=== PATIENT | male | born 2000 | race Caucasian/White ===

== ENCOUNTER 2019-08-28 15:11 | Emergency (ER) | payer BC ==
[2019-08-28 15:21] VITALS: BP 131/80; PULSE 80; RESP 16; TEMP 97.8
[2019-08-28] MEDS ORDERED: LIDOCAINE 1% INJ 10MG/ML (20 ML MDV) SQ ONE (15:27)
--- NOTE | 2019-08-28 15:55 | ED ---
Wound/Laceration HPI - General Chief Complaint: Wound/Laceration Stated Complaint: thumb lac Time Seen by Provider: 08/28/19 15:22 Source: patient Mode of arrival: ambulatory Limitations: no limitations - History of Present Illness Initial Comments: 19-year-old male presenting today for chief complaint of left thumb laceration. Patient states that he was moving sheet metal when it sliced his thumb. He states this all limitations in range of motion or strength he did not even want to come to the emergency department however his family member thought that he may need sutures. Patient states his tetanus has been updated within the last 10 years. Patient denies history of diabetes or immunocompromise. Patient has no other complaints except as a large piece he denies suspecting any risk of foreign body. remaining ROS (-) upon arrival patient appears well no distress, denies any other area of injury.. - Related Data Home Medications Medication Instructions Recorded Confirmed No Known Home Medications 10/26/15 10/26/15 Allergies Allergy/AdvReac Type Severity Reaction Status Date / Time No Known Allergies Allergy Verified 08/28/19 15:21 Review of Systems ROS Statement: Those systems with pertinent positive or pertinent negative responses have been documented in the HPI. ROS Other: All systems not noted in ROS Statement are negative. Past Medical History Past Medical History: No Reported History History of Any Multi-Drug Resistant Organisms: None Reported Past Surgical History: Ear Surgery Past Psychological History: No Psychological Hx Reported Smoking Status: Never smoker Past Alcohol Use History: None Reported Past Drug Use History: None Reported General Exam - General Exam Comments Initial Comments: General: The patient is awake and alert, in no distress, and does not appear acutely ill. Eye: Pupils are equal, round and reactive to light, extra-ocular movements are intact. No nystagmus. There is normal conjunctiva bilaterally. No signs of icterus. Ears, nose, mouth and throat: There are moist mucous membranes and no oral lesions. Musculoskeletal: Normal range of motion without tenderness at the IP and MCP joint of the left hand will decrease in strength. Capillary refill less than 3 seconds. Sensation intact proximal distal to injury site there is a 2 cm laceration on the thenar administered just distal to the MCP joint linear. Radial pulses equal bilaterally 2+. No evidence of foreign body bleeding controlled. Neurological: A&O x 3. CN II-XII intact, There are no obvious motor or sensory deficits. Coordination appears grossly intact. Speech is normal. Skin: Skin is warm and dry and no rashes or lesions are noted. Psychiatric: Cooperative, appropriate mood & affect, normal judgment. Limitations: no limitations Course Vital Signs 08/28/19 15:18 Temperature 97.8 F Pulse Rate 80 Respiratory 16 Rate Blood Pressure 131/80 O2 Sat by Pulse 98 Oximetry Medical Decision Making - Medical Decision Making 19-year-old male presenting today for chief complaint of left thumb laceration approximately 2 cm. No evidence of foreign body or obvious tendon injury. Laceration overall appears superficial. It was explored irrigated and cleansed with iodine prior to closure. Patient tolerated procedure well, 5 suture placed. Manage applied discuss return parameters importance of follow-up, suture care and the importance of timely follow-up for removal. Patient verbalized understanding is discharged appearing well Disposition Clinical Impression: Thumb laceration Disposition: HOME SELF-CARE Condition: Good Instructions (If sedation given, give patient instructions): Care For Your Stitches (ED), Finger Laceration (ED) Additional Instructions: Please use medication as discussed. Please follow-up with family doctor in the next 2 days, watch for infection, return in 7 days for suture removal in the ER. Please return to emergency room if the symptoms increase or worsen or for any other concerns. Is patient prescribed a controlled substance at d/c from ED?: No Referrals: Eric Flores DO [Primary Care Provider] - 1-2 days Time of Disposition: 15:55
== END 2019-08-28 16:10 | disposition home or self-care (01) ==
LOC: EC 15:11
DX: S61.012A Laceration without foreign body of left thumb without damage to nail, initial encounter (principal); W26.8XXA Contact with other sharp object(s), not elsewhere classified, initial encounter
CPT/HCPCS: 99282; 12001; J2001

== ENCOUNTER 2022-06-09 18:33 | Observation (INO) | payer BC ==
[2022-06-09] MEDS ORDERED: ONDANSETRON 4 MG/2 ML VIAL IVP STA (22:14)
[2022-06-09] MEDS ORDERED: KETOROLAC 15 MG/ML 1 ML VIAL IVP STA (22:14)
[2022-06-09] MEDS ORDERED: SODIUM CHLORIDE 0.9% 1,000 ML IV STA (22:14)
[2022-06-09 22:16] LABS: Basophils % (A) 0 %; Eosinophils # (A) 0.1 k/uL (0-0.7); Eosinophils % (A) 1 %; HCT 42.4 % (39.0-53.0); HGB 14.5 gm/dL (13.0-17.5); Lymphocytes # (A) 1.3 k/uL (1.0-4.8); Lymphocytes % (A) 7 %; MCH 30.2 pg (25.0-35.0); MCHC 34.3 g/dL (31.0-37.0); Mean Platelet Volume 8.5; Monocytes # (A) 0.9 k/uL (0-1.0); Monocytes % (A) 5 %; Neutrophils # (A) 16.9 k/uL (1.3-7.7); Neutrophils % (A) 87 %; Platelet Count 205 k/uL (150-450); RBC 4.81 m/uL (4.30-5.90); WBC 19.4 k/uL (3.8-10.6)
--- NOTE | 2022-06-09 22:19 | ED ---
General Adult HPI - General Chief complaint: Abdominal Pain Stated complaint: abd pain Time Seen by Provider: 06/09/22 21:52 Source: patient, RN notes reviewed Mode of arrival: ambulatory Limitations: no limitations - History of Present Illness Initial comments: 22-year-old male presents to the emergency Department with complaints of diffuse abdominal pain, onset this morning. Patient states his pain extends around below the ribs to the pelvis. Describes it as a sharp stabbing discomfort. Reports intermittent nausea, but no vomiting. States he was able to eat lunch this afternoon but missed dinner tonight. Has not had a bowel movement today. Passing urine without difficulty. Reports pain is worsened with activity. 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 He did not take anything to treat his symptoms prior to arrival. Denies fever, chills, headache, dizziness, chest pain, palpitations, constipation, diarrhea, dysuria, and hematuria. - Related Data Home Medications Medication Instructions Recorded Confirmed No Known Home Medications 10/26/15 10/26/15 Allergies Allergy/AdvReac Type Severity Reaction Status Date / Time No Known Allergies Allergy Verified 06/09/22 19:25 Review of Systems ROS Statement: Those systems with pertinent positive or pertinent negative responses have been documented in the HPI. ROS Other: All systems not noted in ROS Statement are negative. Past Medical History Past Medical History: No Reported History History of Any Multi-Drug Resistant Organisms: None Reported Past Surgical History: Ear Surgery Past Psychological History: No Psychological Hx Reported Smoking Status: Never smoker Past Alcohol Use History: Occasional Past Drug Use History: None Reported General Exam Limitations: no limitations General appearance: alert, in no apparent distress ENT exam: Present: normal exam, normal oropharynx, mucous membranes moist Respiratory exam: Present: normal lung sounds bilaterally. Absent: respiratory distress, wheezes, rales, rhonchi, stridor, chest wall tenderness Cardiovascular Exam: Present: regular rate, normal rhythm, normal heart sounds. Absent: systolic murmur, diastolic murmur, rubs, gallop, clicks GI/Abdominal exam: Present: soft, tenderness (Right side of the abdomen; RLQ and right flank.), normal bowel sounds. Absent: distended, guarding, rebound, rigid Back exam: Absent: CVA tenderness (R), CVA tenderness (L) Neurological exam: Present: alert, oriented X3, CN II-XII intact Psychiatric exam: Present: normal affect, normal mood Skin exam: Present: warm, dry, intact, normal color. Absent: rash Course Vital Signs 06/09/22 19:23 Temperature 98.6 F Pulse Rate 96 Respiratory 18 Rate Blood Pressure 167/82 O2 Sat by Pulse 100 Oximetry - Reevaluation(s) Reevaluation #1: 06/10/22 00:[address] Payan who agrees to accept this patient. Patient and mother updated on results and plan of care. They verbalize understanding. Medical Decision Making - Medical Decision Making 22-year-old male with no significant past medical history who presents to the emergency Department with complaints of abdominal pain, onset this morning. Upon exam, patient is well-appearing and in no acute distress. Vital signs are stable. He does have pain upon palpation of the right lower quadrant. No nausea or vomiting. He was given IV fluids, Toradol, and Zofran with some improvement. Laboratory studies were obtained showing leukocytosis (WBC 19.4). CT of the abdomen and pelvis was concerning for acute appendicitis with possible rupture. I spoke with Dr. Payan regarding CT findings. Patient will be admitted and is made NPO. Pain medications ordered. Plan of care discussed with the patient and mother. They verbalized understanding and agreed with this plan. Attending: Kristen. - Lab Data Result diagrams: 06/09/22 22:11 06/09/22 22:11 Lab Results 06/09/22 06/09/22 06/09/22 Range/Units 22:11 22:11 23:10 WBC 19.4 H (3.8-10.6) k/uL RBC 4.81 (4.30-5.90) m/uL Hgb 14.5 (13.0-17.5) gm/dL Hct 42.4 (39.0-53.0) % MCV 88.0 (80.0-100.0) fL MCH 30.2 (25.0-35.0) pg MCHC 34.3 (31.0-37.0) g/dL RDW 12.0 (11.5-15.5) % Plt Count 205 (150-450) k/uL MPV 8.5 Neutrophils % 87 % Lymphocytes % 7 % Monocytes % 5 % Eosinophils % 1 % Basophils % 0 % Neutrophils # 16.9 H (1.3-7.7) k/uL Lymphocytes # 1.3 (1.0-4.8) k/uL Monocytes # 0.9 (0-1.0) k/uL Eosinophils # 0.1 (0-0.7) k/uL Basophils # 0.0 (0-0.2) k/uL Sodium 136 L (137-145) mmol/L Potassium 4.0 (3.5-5.1) mmol/L Chloride 102 (98-107) mmol/L Carbon Dioxide 24 (22-30) mmol/L Anion Gap 10 mmol/L BUN 15 (9-20) mg/dL Creatinine 0.79 (0.66-1.25) mg/dL Est GFR (CKD-EPI)AfAm >90 (>60 ml/min/1.73 sqM) Est GFR (CKD-EPI)NonAf >90 (>60 ml/min/1.73 sqM) Glucose 110 H (74-99) mg/dL Calcium 9.3 (8.4-10.2) mg/dL Total Bilirubin 1.3 (0.2-1.3) mg/dL AST 23 (17-59) U/L ALT 23 (4-49) U/L Alkaline Phosphatase 110 (38-126) U/L Total Protein 7.5 (6.3-8.2) g/dL Albumin 4.7 (3.5-5.0) g/dL Lipase 51 (23-300) U/L Urine Color Light Yellow Urine Appearance Clear (Clear) Urine pH 6.5 (5.0-8.0) Ur Specific [place] 1.019 (1.001-1.035) Urine Protein Negative (Negative) Urine Glucose (UA) Negative (Negative) Urine Ketones 1+ H (Negative) Urine Blood Negative (Negative) Urine Nitrite Negative (Negative) Urine Bilirubin Negative (Negative) Urine Urobilinogen <2.0 (<2.0) mg/dL Ur Leukocyte Esterase Negative (Negative) - Radiology Data Radiology results: report reviewed, image reviewed CT abdomen and pelvis without contrast was obtained. Report was reviewed in its entirety. Impression per Dr. Ferrer is enlarged appendix with appendicolith and fat stranding and fluid consistent with acute appendicitis. Rupture is possible. Disposition Clinical Impression: Acute appendicitis Disposition: ADMITTED IP TO THIS [facility] Condition: Serious Decision Date: 06/10/22 Decision Time: 00:02
[2022-06-09 22:26] LABS: ALT 23 U/L (4-49); AST 23 U/L (17-59); African American GFR (CKD) >90 (>60 ml/min/1.73 sqM); Albumin 4.7 g/dL (3.5-5.0); Alkaline Phosphatase 110 U/L (38-126); Anion Gap 10 mmol/L; Blood Urea Nitrogen 15 mg/dL (9-20); Calcium 9.3 mg/dL (8.4-10.2); Carbon Dioxide 24 mmol/L (22-30); Chloride 102 mmol/L (98-107); Glucose 110 mg/dL (74-99); Lipase 51 U/L (23-300); Non-African American GFR(CKD) >90 (>60 ml/min/1.73 sqM); Sodium 136 mmol/L (137-145); Total Bilirubin 1.3 mg/dL (0.2-1.3); Total Protein 7.5 g/dL (6.3-8.2)
[2022-06-09 23:16] LABS: Appearance,Urine Clear (Clear); Bilirubin,Urine Negative (Negative); Blood,Urine Negative (Negative); Color,Urine Light Yellow; Glucose,Urine (UA) Negative (Negative); Ketones,Urine 1+ (Negative); Leukocyte Esterase,Urine Negative (Negative); Nitrite,Urine Negative (Negative); PH, Urine 6.5 (5.0-8.0); Protein,Urine Negative (Negative); Specific Gravity,Urine 1.019 (1.001-1.035); Urobilinogen,Urine <2.0 mg/dL (<2.0)
--- NOTE | 2022-06-09 23:36 | CT ---
EXAMINATION TYPE: CT abdomen pelvis wo con DATE OF EXAM: 06/09/2022 COMPARISON: None HISTORY: ABD PAIN SINCE HE WOKE UP THIS AM CT DLP: 784 mGycm Automated exposure control for dose reduction was used. Images obtained from the diaphragm to the floor the pelvis with no contrast. The lung bases are clear of consolidation. There is no pleural effusion. Heart size is normal. No per icardial effusion. Liver spleen and stomach pancreas and bladder appear intact. The bile ducts are not dilated. There is no adrenal mass. Kidneys have normal size and contour. No hydronephrosis. The ureters are no t dilated. No retroperitoneal adenopathy. No evidence of renal calculus. The bladder distends smoothl y. No inguinal hernia. No free fluid in the pelvis. There is moderate fat stranding in right lower quadrant. This enlarged appendix with appendicolith. T here is some minimal fluid in the right paracolic gutter. The lumbar vertebrae have normal alignment. Posterior elements are intact. Bony pelvis is intact. The hip joints are intact. IMPRESSION: Enlarged appendix with appendicolith and fat stranding and fluid consistent with acute appendicitis. Rupture is possible.
[2022-06-09] MEDS ORDERED: PIPERACILLIN-TAZOBACTAM 3.375 GM in SODIUM CHLORIDE 0.9% 100 ML IVPB STA (23:46)
[2022-06-09] MEDS ORDERED: HYDROmorphone 1 MG/ML 1 ML SYRINGE IVP STA (23:56)
[2022-06-09] MEDS ORDERED: KETOROLAC 15 MG/ML 1 ML VIAL IVP PRN (23:57)
[2022-06-09] MEDS ORDERED: ONDANSETRON 4 MG/2 ML VIAL IVP PRN (23:57)
[2022-06-09] MEDS ORDERED: HYDROmorphone 0.5 MG/0.5 ML SYRINGE IVP PRN (23:57)
[2022-06-09] MEDS ORDERED: NALOXONE 0.4 MG/ML 1 ML VIAL IV PRN (23:57)
[2022-06-10] MEDS: SODIUM CHLORIDE 0.9% 1,000 ML IV SCH ×3 (01:01→17:08)
[2022-06-10] MEDS ORDERED: HEPARIN SODIUM,PORCINE/PF 5,000 UNIT/0.5 ML SYRINGE SQ ONE (08:00)
[2022-06-10] MEDS ORDERED: ACETAMINOPHEN TAB 500 MG TAB ONE (08:00)
[2022-06-10] MEDS ORDERED: LACTATED RINGERS 1,000 ML IV ONE (08:06)
[2022-06-10] MEDS ORDERED: DEXAMETHASONE SOD PHOSPHATE 4 MG/ML 1 ML VIAL IVP ONE (08:07)
[2022-06-10] MEDS ORDERED: ONDANSETRON 4 MG/2 ML VIAL IVP ONE (08:07)
[2022-06-10 08:19] LABS: Basophils # (A) 0.1 k/uL (0-0.2); Basophils % (A) 0 %; Eosinophils # (A) 0.1 k/uL (0-0.7); Eosinophils % (A) 0 %; HCT 41.1 % (39.0-53.0); Lymphocytes # (A) 1.7 k/uL (1.0-4.8); Lymphocytes % (A) 13 %; MCH 30.6 pg (25.0-35.0); MCV 90.1 fL (80.0-100.0); Mean Platelet Volume 8.6; Monocytes # (A) 0.9 k/uL (0-1.0); Monocytes % (A) 7 %; Neutrophils # (A) 10.2 k/uL (1.3-7.7); Neutrophils % (A) 79 %; Platelet Count 207 k/uL (150-450); RBC 4.56 m/uL (4.30-5.90)
[2022-06-10] MEDS ORDERED: ACETAMINOPHEN TAB 500 MG TAB PO ONE (08:20)
--- NOTE | 2022-06-10 08:28 | P.GSHP ---
History of Present Illness H&P Date: 06/10/22 Chief Complaint: Right lower quadrant pain The 22-year-old male with History of right lower quadrant pain. Patient's computed tomography scan suggestive of acute appendicitis. Past Medical History Past Medical History: No Reported History History of Any Multi-Drug Resistant Organisms: None Reported Past Surgical History: Ear Surgery Past Psychological History: No Psychological Hx Reported Smoking Status: Never smoker Past Alcohol Use History: Occasional Past Drug Use History: None Reported Medications and Allergies Home Medications Medication Instructions Recorded Confirmed Type No Known Home Medications 10/26/15 06/10/22 History Allergies Allergy/AdvReac Type Severity Reaction Status Date / Time No Known Allergies Allergy Verified 06/10/22 08:10 Surgical - Exam Vital Signs Temp Pulse Resp BP Pulse Ox 98.6 F 96 18 167/82 100 06/09/22 19:23 06/09/22 19:23 06/09/22 19:23 06/09/22 19:23 06/09/22 19:23 - General well developed, well nourished, no distress - Eyes PERRL ( ) - ENT normal pinna - Neck no masses - Respiratory normal expansion - Cardiovascular Rhythm: regular - Abdomen Tender right lower quadrant Abdomen: soft Results - Labs 06/10/22 07:53 06/09/22 22:11 Abnormal Lab Results - Last 24 Hours (Table) 06/09/22 06/09/22 06/09/22 Range/Units 22:11 22:11 23:10 WBC 19.4 H (3.8-10.6) k/uL Neutrophils # 16.9 H (1.3-7.7) k/uL Sodium 136 L (137-145) mmol/L Glucose 110 H (74-99) mg/dL Urine Ketones 1+ H (Negative) 06/10/22 Range/Units 07:53 WBC 13.0 H (3.8-10.6) k/uL Neutrophils # 10.2 H (1.3-7.7) k/uL Sodium (137-145) mmol/L Glucose (74-99) mg/dL Urine Ketones (Negative) Diabetes panel 06/09/22 Range/Units 22:11 Sodium 136 L (137-145) mmol/L Potassium 4.0 (3.5-5.1) mmol/L Chloride 102 (98-107) mmol/L Carbon Dioxide 24 (22-30) mmol/L BUN 15 (9-20) mg/dL Creatinine 0.79 (0.66-1.25) mg/dL Glucose 110 H (74-99) mg/dL Calcium 9.3 (8.4-10.2) mg/dL AST 23 (17-59) U/L ALT 23 (4-49) U/L Alkaline Phosphatase 110 (38-126) U/L Total Protein 7.5 (6.3-8.2) g/dL Albumin 4.7 (3.5-5.0) g/dL Calcium panel 06/09/22 Range/Units 22:11 Calcium 9.3 (8.4-10.2) mg/dL Albumin 4.7 (3.5-5.0) g/dL Pituitary panel 06/09/22 Range/Units 22:11 Sodium 136 L (137-145) mmol/L Potassium 4.0 (3.5-5.1) mmol/L Chloride 102 (98-107) mmol/L Carbon Dioxide 24 (22-30) mmol/L BUN 15 (9-20) mg/dL Creatinine 0.79 (0.66-1.25) mg/dL Glucose 110 H (74-99) mg/dL Calcium 9.3 (8.4-10.2) mg/dL Adrenal panel 06/09/22 Range/Units 22:11 Sodium 136 L (137-145) mmol/L Potassium 4.0 (3.5-5.1) mmol/L Chloride 102 (98-107) mmol/L Carbon Dioxide 24 (22-30) mmol/L BUN 15 (9-20) mg/dL Creatinine 0.79 (0.66-1.25) mg/dL Glucose 110 H (74-99) mg/dL Calcium 9.3 (8.4-10.2) mg/dL Total Bilirubin 1.3 (0.2-1.3) mg/dL AST 23 (17-59) U/L ALT 23 (4-49) U/L Alkaline Phosphatase 110 (38-126) U/L Total Protein 7.5 (6.3-8.2) g/dL Albumin 4.7 (3.5-5.0) g/dL Assessment and Plan Assessment: Acute appendicitis. Patient undergo laparoscopic appendectomy
[2022-06-10] MEDS ORDERED: HEPARIN SODIUM,PORCINE 5,000 UNIT/ML 1 ML VIAL SQ ONE (08:32)
[2022-06-10 08:47] LABS: ALT 21 U/L (4-49); AST 18 U/L (17-59); African American GFR (CKD) >90 (>60 ml/min/1.73 sqM); Albumin 4.1 g/dL (3.5-5.0); Alkaline Phosphatase 77 U/L (38-126); Anion Gap 5 mmol/L; Blood Urea Nitrogen 13 mg/dL (9-20); Calcium 8.7 mg/dL (8.4-10.2); Carbon Dioxide 29 mmol/L (22-30); Chloride 105 mmol/L (98-107); Glucose 92 mg/dL (74-99); Non-African American GFR(CKD) >90 (>60 ml/min/1.73 sqM); Sodium 139 mmol/L (137-145); Total Bilirubin 2.3 mg/dL (0.2-1.3); Total Protein 6.6 g/dL (6.3-8.2)
[2022-06-10] MEDS ORDERED: MIDAZOLAM 2 MG/2 ML VIAL ONE (08:51)
[2022-06-10] MEDS ORDERED: fentaNYL (PF) 50 MCG/ML 2 ML AMP ONE (08:51)
[2022-06-10] MEDS ORDERED: KETOROLAC 30 MG/ML 1 ML VIAL ONE (08:51)
[2022-06-10] MEDS ORDERED: ONDANSETRON 4 MG/2 ML VIAL ONE (08:51)
[2022-06-10] MEDS ORDERED: SUCCINYLCHOLINE CHLORIDE 200 MG/10 ML VIAL IV ONE (08:51)
[2022-06-10] MEDS ORDERED: ceFAZolin 1,000 MG VIAL ONE (08:51)
[2022-06-10] MEDS ORDERED: PROPOFOL 10 MG/ML 20 ML VIAL IV ONE (08:51)
[2022-06-10] MEDS ORDERED: ROCURONIUM 10 MG/ML (5 ML VIAL) IV ONE (08:51)
[2022-06-10] MEDS ORDERED: DEXAMETHASONE SOD PHOS (MDV) 100 MG/10 ML VIAL ONE (08:51)
[2022-06-10] MEDS ORDERED: SODIUM CHLORIDE 0.9% 100 ML BAG ONE (08:51)
[2022-06-10] MEDS ORDERED: BUPIVACAIN-EPI 0.25%-1:200,000 30 ML VIAL SQ ONE ×2 (08:54→09:16)
--- NOTE | 2022-06-10 09:44 | P.OP ---
Date of Procedure: 06/10/22 Preoperative Diagnosis: Acute appendicitis Postoperative Diagnosis: Acute appendicitis Procedure(s) Performed: Laparoscopic appendectomy Anesthesia: LINDY Surgeon: Mitchel Payan Estimated Blood Loss (ml): 5 Pathology: other (Appendix) Condition: stable Disposition: PACU Operative Findings: Grossly inflamed appendix without evidence of perforation Description of Procedure: The patient's placed on the operating table in the supine position. The patient received general anesthesia. The abdomen was prepped and draped in the usual sterile fashion. The skin was anesthetized 1% local Xylocaine at the trocar sites. Using an 11 blade the skin was incised at the umbilicus. The umbilicus was grasped with a Gala clamp and then a Veress needle was placed into the peritoneal cavity. Position of the Veress needle was confirmed with positive drop test. After adequate insufflation a 5 mm trocar was placed into the peritoneal cavity. The abdomen was further insufflated. And then the laparoscope was placed in the peritoneal cavity. Next a 5 mm trocar was placed in the midline suprapubic position. And then a 10 mm trocar was placed in the midline epigastric position. The patient was rotated with the right side up and in Trendelenburg. The appendix was visualized. The appendix appeared to be inflamed. The appendix was grasped and then using the Harmonic scissors the mesoappendix was divided. A PDS Endoloop was then placed around the base of the appendix. And then the appendix was divided using Harmonic scissors. The appendix was placed into an Endo Catch and brought out through the 10 mm trocar site. The abdomen was irrigated. There is no bleeding seen. The trochars withdrawn. The skin was closed interrupted 3-0 Monocryl suture. Dermabond dressing was applied. Patient was sent to recovery room in stable condition.
[2022-06-10] MEDS ORDERED: HYDROmorphone 0.5 MG/0.5 ML SYRINGE IVP ONE (10:10)
[2022-06-10] MEDS ORDERED: SODIUM CHLORIDE 0.9% 1,000 ML IV ONE (12:00)
[2022-06-10] MEDS: PIPERACILLIN-TAZOBACTAM 3.375 GM in SODIUM CHLORIDE 0.9% 100 ML IVPB SCH ×2 (14:30→17:06)
[2022-06-11] MEDS: PIPERACILLIN-TAZOBACTAM 3.375 GM in SODIUM CHLORIDE 0.9% 100 ML IVPB SCH ×2 (00:53→08:02)
[2022-06-11] MEDS: SODIUM CHLORIDE 0.9% 1,000 ML IV SCH ×2 (00:56→08:02)
[2022-06-11 07:08] VITALS: BP 112/66; PULSE 61; RESP 17; TEMP 97.3
[2022-06-11] MEDS ORDERED: HYDROcodone/APAP 5-325MG 1 EACH TAB PO PRN (07:52)
[2022-06-11] MEDS ORDERED: ENOXAPARIN 40 MG/0.4 ML SYRINGE SQ SCH (09:00)
--- NOTE | 2022-06-11 12:16 | P.DS ---
Providers Date of admission: 06/09/22 23:46 Expected date of discharge: 06/11/22 Attending physician: Mitchel Payan Primary care physician: Eric Flores Hospital Course: Discharge diagnosis 1. Acute appendicitis status post laparoscopic appendectomy Hospital course This is a 22-year-old male who presented with right lower quadrant abdominal pain and CAT scan evidence of acute appendicitis. He is status post laparoscopic cholecystectomy appendectomy. Patient tolerated surgery well. Pain is controlled. He is having flatus. Tolerating diet. Afebrile. He has been up and ambulating. He is stable for discharge. Please refer to chart for any further details. Physician [employer] Record Clerk note has been reviewed by physician. Signing provider agrees with the documented findings, assessment, and plan of care. Patient Condition at Discharge: Stable Plan - Discharge Summary New Discharge Prescriptions: New metroNIDAZOLE [Flagyl] 500 mg PO TID #30 tab Levofloxacin [Levaquin] 500 mg PO DAILY 10 Days #10 tab HYDROcodone/APAP 5-325MG [[place] 5-325] 1 tab PO Q6HR PRN 3 Days #12 tab PRN Reason: Pain Discharge Medication List HYDROcodone/APAP 5-325MG [[place] 5-325] 1 tab PO Q6HR PRN 3 Days #12 tab 06/11/22 [Rx] Levofloxacin [Levaquin] 500 mg PO DAILY 10 Days #10 tab 06/11/22 [Rx] metroNIDAZOLE [Flagyl] 500 mg PO TID #30 tab 06/11/22 [Rx] Follow up Appointment(s)/Referral(s): Eric Flores DO [Primary Care Provider] - 1-2 days (Office will call for an appointment ) Mitchel Payan MD [STAFF PHYSICIAN] - 06/19/22 2:30 pm Patient Instructions/Handouts: *Surgery [facility] - Anesthesia Discharge Instructions, Laparoscopic Appendectomy (DC) Activity/Diet/Wound Care/Special Instructions: No driving while taking [place] No lifting over 10 pounds Shower daily. No soaking or tub baths for 2 weeks Very light activity until you are reevaluated at your follow up appointment with your surgeon Discharge Disposition: HOME SELF-CARE
== END 2022-06-11 12:27 | disposition home or self-care (01) ==
LOC: EC 18:33 → INTOOBSV 23:46 → 5NMEDONC 23:46 → 4SSUR 06-10 13:16
PROVIDERS: ADMIT Surgery; ATTEND Surgery
DX: K35.80 Unspecified acute appendicitis (principal); K38.1 Appendicular concretions
CPT/HCPCS: 96366 ×3; 96375 ×2; 96361; 96365; 99285; 36415; 88304; 80053 ×2; 83690; 85025 ×2; 81003; 74176; 44970; G0378 ×2; J2543 ×2; J2250; J0330; J1644; J1100 ×2; J2405 ×2; J0690; J3010; J1885 ×2; J2704; J1170